=== PATIENT | male | born 1965 | race Caucasian/White ===

== ENCOUNTER 2023-08-17 09:50 | Emergency (ER) | payer OTHER ==
[~2023-08-17] VITALS: Ht 180.3 cm; Wt 150.0 kg
[2023-08-17 09:54] VITALS: TEMP 97.1
[2023-08-17 10:41] LABS: ALANINE AMINOTRANSFERASE 29 U/L (12-78); ALBUMIN 3.4 G/DL (3.4-5.0); ALKALINE PHOSPHATASE 70 IU/L (46-116); ANION GAP 6 (8-16); ASPARTATE AMINO TRANSFERASE 20 U/L (10-37); BILIRUBIN,TOTAL 0.7 MG/DL (0.1-1.0); BLOOD UREA NITROGEN 15 MG/DL (7-18); BUN/CREATININE RATIO 16.7 (10.0-20.0); CALCIUM 8.9 MG/DL (8.5-10.1); CHLORIDE 105 MMOL/L (99-107); GLUCOSE 131 MG/DL (70-104); POTASSIUM 3.8 MMOL/L (3.5-5.1); SODIUM 139 MMOL/L (135-145); TOTAL PROTEIN 6.7 G/DL (6.4-8.2); eCRCL 98 ML/MIN; eGFR 87 ML/MIN
[2023-08-17 10:47] LABS: AMYLASE 77 U/L (25-115); PRO BRAIN NATRIURETIC PEPTIDE 189 PG/ML (0-125)
[2023-08-17 10:58] LABS: BASOPHILS % (AUTO) 0.5 % (0-1); EOSINOPHILS # (AUTO) 0.1 X10'3 (0-0.9); EOSINOPHILS % (AUTO) 1.3 % (0-6); HEMATOCRIT 50.7 % (42.0-52.0); HEMOGLOBIN 17.6 g/dl (14.0-17.9); LYMPHOCYTES # (AUTO) 1.7 X10'3 (1.1-4.8); LYMPHOCYTES % (AUTO) 24.8 % (21-51); MEAN CORPUSCULAR HEMOGLOBIN 32.3 PG (27.0-31.0); MEAN CORPUSCULAR HGB CONC 34.7 g/dL (33.0-36.5); MEAN PLATELET VOLUME 9.2 FL (7.4-10.4); MONOCYTES # (AUTO) 0.9 X10'3 (0-0.9); MONOCYTES % (AUTO) 13.6 % (2-12); NEUTROPHILS # (AUTO) 4.1 X10'3 (1.8-7.7); NEUTROPHILS % (AUTO) 59.8 % (42-75); PLATELET COUNT 175 X10'3 (140-440); RED BLOOD COUNT 5.45 X10'6 (4.70-6.10); RED CELL DISTRIBUTION WIDTH 13.6 % (11.5-14.5); WHITE BLOOD COUNT 6.9 X10'3 (4.5-11.0)
[2023-08-17] MEDS ORDERED: ketorolac trometh. 30mg/ml inj. IV ONE (13:00)
[2023-08-17] MEDS ORDERED: iohexol 300mg/ml 100ml inj. ONE (15:57)
[2023-08-17] MEDS ORDERED: ONDA4TAB12 PO (17:59)
[2023-08-17] MEDS ORDERED: HYDR-3965 PO (17:59)
[2023-08-17] MEDS ORDERED: HYDROcodone/acetaminophen 10/325mg tab PO ONE (18:05)
[2023-08-17 18:26] VITALS: BP 161/102; PULSE 50; RESP 18; O2SAT 96
== END 2023-08-17 18:35 | disposition home or self-care (01) ==
LOC: ER 09:51
DX: K80.20 Calculus of gallbladder without cholecystitis without obstruction (principal)
CPT/HCPCS: 36415; 74177; 80053; 82150; 83690; 83880; 84484; 85025; 93005; 99285; J3490; Q9967